=== PATIENT | male | born 2000 | race Caucasian/White ===

== ENCOUNTER 2023-03-06 15:10 | Emergency (ER) | payer MEDICAID ==
[~2023-03-06] VITALS: Ht 188 cm; Wt 140.6 kg
[2023-03-06] MEDS ORDERED: DOCU-141 PO (15:37)
[2023-03-06] MEDS ORDERED: NA P133E RC (15:37)
[2023-03-06 15:49] VITALS: BP 129/69; TEMP 98.4; O2SAT 97
== END 2023-03-06 15:49 | disposition home or self-care (01) ==
LOC: ER 15:19
DX: K59.00 Constipation, unspecified (principal); Z88.0 Allergy status to penicillin